=== PATIENT | male | born 1985 | race Caucasian/White ===

== ENCOUNTER 2021-09-27 18:04 | Emergency (ER) | payer SELFPAY ==
[2021-09-27 18:05] VITALS: BP 131/96; PULSE 98; RESP 14; TEMP 37.3; O2SAT 97; BMI 25.8
--- NOTE | 2021-09-27 20:21 | CT_ITS ---
STUDY: CT BRAIN WITHOUT CONTRAST REASON FOR EXAM: Male, 36 years old. Technologist Notes ANXIETY,DECREASED APPETITE, RECENT LOSS OF A FRIEND Change in Mental Status TECHNIQUE: Transaxial CT imaging of the brain was performed without administration of intravenous contrast material. Individualized dose optimization techniques were used for this CT. COMPARISON: None FINDINGS: Normal calvarium. Normal soft tissues. Hyperdensity noted in the 3rd ventricle. 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 Normal size ventricles and extra-axial spaces for the patient''s age. Normal white matter tracts of the cerebral hemispheres. Normal basal ganglia and thalami. Normal brainstem. Normal cerebellum. There is no intracranial hemorrhage. There are no findings of an acute ischemic infarction. Normal visualized paranasal sinuses. ASPECTS 10 CT/Brain/Head without Contrast IMPRESSION: There are no acute intracranial findings. Electronically Signed: Srinivasan Beach MD at 21:36 EDT ,
--- NOTE | 2021-09-27 20:21 | EKG12_ITS ---
Test Reason : DYSRHYTHMIA Blood Pressure : / mmHG Vent. Rate : 075 BPM Atrial Rate : 075 BPM P-R Int : 110 ms QRS Dur : 080 ms QT Int : 388 ms P-R-T Axes : 043 023 022 degrees QTc Int : 433 ms Sinus rhythm with sinus arrhythmia with short MI Otherwise normal ECG Confirmed by ISIS SMITH, JOMAR ([id number]), sports editor VIVIANA FISCHER ([id number]) on 10/01/2021 9:43:42 AM Referred By: MONIQUE Confirmed By:JOMAR MARINELLI MD
[2021-09-27 20:43] LABS: Bacteria 0 SEEN /hpf (None Seen); Mucous, Urine 0 SEEN /hpf (<or=2+); Red Blood Cells-Urine 0 SEEN /hpf (0-5); Squamous Epithelial Cells - UA 0 SEEN /hpf (0-5); White Blood Cells 0 SEEN /hpf (0-5)
[2021-09-27 20:47] LABS: Color, Urine Yellow (Yellow); Glucose, Dipstick Normal (Normal); Leukocyte Esterase-Dipstick 25 /ul (Negative); Nitrite-Dipstick Negative (Negative); Occult Blood-Urine Negative /ul (Negative); Protein-Dipstick 30 mg/dl (Negative); Specific Gravity, Urine 1.025 (1.002-1.030); Urine Bilirubin Dipstick Negative (Negative); Urine Clarity Clear (Clear); Urine Urobilinogen 1 mg/dl (Normal)
[2021-09-27 20:54] LABS: Absolute Lymphocyte Count 2.85 X10^3/uL (0.83-4.51); Absolute Neutrophil Count 8.7 X10^3/uL (2.0-7.7); Basophil# 0.03 X10^3/uL; Basophil% 0.2 % (0-1); Eosinophil# 0.06 X10^3/uL; Eosinophils% 0.5 % (0-5); Hematocrit 44.9 % (40-54); Hemoglobin 15.3 g/dL (13.0-16.5); Lymphocyte # 2.85 X10^3/ul (0.83-4.51); Lymphocyte % 22.5 % (19-41); Mean Corp Hgb Conc 34.1 g/dL (32-36); Mean Corpuscular Hgb 30.6 pg (27.0-32.0); Mean Corpuscular Volume 89.8 fL (80-94); Mean Platelet Vol. 8.7 fl (6.2-12.0); Monocyte% 7.9 % (0-10); NRBC Flagged by Analyzer 0 % (0-5); Neutrophil # 8.69 X10^3/uL (2.7-7.7); Neutrophil % 68.7 % (47-70); Platelet Count 317 K/mm3 (150-450); RBC Distribution Width CV 12.1 % (11.6-14.6); RBC Distribution Width SD 39.8 fl (35.1-43.9); White Blood Count 12.7 K/mm3 (4.4-11.0)
[2021-09-27 20:56] LABS: Ketone-Dipstick 150 mg/dl (Negative)
--- NOTE | 2021-09-27 20:59 | ED.RN ---
PT CONTINUES TO ANSWER QUESTIONS WITH NODDING OR SHAKING HEAD, OCCASIONALLY RESPONDS WITH YES OR NO. ATTEMPTED TO AMBULATE PT TO BATHROOM FOR URINE SAMPLE. PT ALMOST SAT ON FLOOR, THIS NURSE HAD TO PHYSICALLY ASSIST PT BACK TO BED WHILE IN SIGHT OF PARENTS. AFTER PARENTS LEFT ROOM, PT ABLE TO GET OUT OF BED INDEPENDENTLY AND OBTAIN URINE SAMPLE AT BEDSIDE WITHOUT DIFFICULTY.
[2021-09-27 21:05] LABS: Amphetamine Urine VISTA NEGATIVE (<1000 ng/mL); Barbiturate Urine VISTA NEGATIVE (< 200 ng/mL); Benzodiazepine Urine VISTA NEGATIVE (< 200 ng/mL); Cocaine Urine VISTA NEGATIVE (< 300 ng/mL); Ecstacy Urine VISTA NEGATIVE (< 500 ng/mL); Methadone Urine VISTA NEGATIVE (< 300 ng/mL); PCP Urine VISTA NEGATIVE (< 25 ng/mL); THC Urine VISTA POSITIVE (< 50 ng/mL); Vista UDS pH Range 5
--- NOTE | 2021-09-27 21:07 | CM.ED ---
Social Work Note SW received referral for Mental Health. DAMION updated by MD that pt is stating he needs to be committed. Pt will not follow commands and will not talk to physician. RN updated this worker that she tried to get pt to get urine sample and pt was basically collapsing and flopped against the bed rail and hit his head. Once pt's parents left the room, pt was able to stand and use urinal. DAMION placed a call to [facility] and updated staff that pt will need to be assessed. DAMION faxed available clinicals to [facility]. Montserrat Masterson PRINCIPAL DATA ARCHITECT, ARTISTS' BOOKING REPRESENTATIVE
[2021-09-27 21:12] LABS: AST(SGOT) 149 U/L (15-37); Alanine Aminotransfer ALT/SGPT 91 U/L (16-61); Albumin, Serum 4.7 g/dL (3.2-5.0); Alkaline Phosphatase 62 U/L (45-117); Anion Gap 10 (5-15); BUN 12 mg/dL (7-18); BUN/Creat Ratio 11.5 RATIO (10-20); Bilirubin, Direct 0.22 mg/dL (0.00-0.30); Calcium,Total 9.3 mg/dL (8.5-10.1); Chloride 97 mmol/L (98-107); Creatinine, Serum 1.04 mg/dL (0.70-1.30); EST Glomerular Filtration Rate 85 mL/min (>60); Est Glom Filt Rate - Afr Amer 103 mL/min (>60); Estimated Creatinine Clearance 87.76 ml/min; Globulin 3.2 g/dL (2.2-4.2); Glucose 113 mg/dL (74-106); Potassium 4.3 mmol/L (3.5-5.1); Protein, Total 7.9 g/dL (6.4-8.2); Sodium Level 135 mmol/L (136-145)
[2021-09-27 21:35] LABS: Alcohol, Blood (Medical)-Serum < 3.0 mg/dL
[2021-09-27] MEDS: Zolpidem Tartrate 5 MG Tablet PO (23:56)
[2021-09-28 00:06] VITALS: BP 127/69; PULSE 72; RESP 16; O2SAT 98
--- NOTE | 2021-09-28 00:07 | EDS_ITS ---
HPI <Dr. Destin Seaman MD - Last Filed: 09/29/21 15:30> HPI - Psych History of Present Illness Chief Complaint: Anxiety Detail of Chief Complaint: Per HPI narrative Informant: parent and friend Onset/Context/Timing Onset: - (Possibly due to event that occurred 2 weeks ago) Context: Gradual Onset Conflict: - (Feels that everyone dislikes him) Timing: Continuous and Waxes and wanes Current Severity: Unable to determine read HPI narrative Maximum Severity: Unable to determine read HPI narrative Worsened by: Situational factors (Possibly) Relieved by: Nothing Associated Symptoms Associated Symptoms - Psych: Positive for Change in Eating, Change in sleeping and Decreased Interest Specific plan (suicidal thought): Unable to determine Narrative Narrative: 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 He does not drive. [place] and lives near his place of employment. Patient is nonverbal. He will follow simple commands Prior similar symptoms: No Recent Illness/Hospitalization: No PFSH <Dr. Destin Seaman MD - Last Filed: 09/29/21 15:30> PFSH Medical History unable to obtain Allergy/AdvReac Type Severity Reaction Status Date / Time No Known Allergies Allergy Verified 09/28/21 13:54 Family History no significant family his no significant family history Surgical History no surgical history no surgical history Social History household members: none Smoking Status: Never smoker alcohol intake: current substance use type: does not use ROS <Dr. Destin Seaman MD - Last Filed: 09/29/21 15:30> ROS ED Review of Systems ROS Unobtainable: due to mental condition EXAM <Dr. Destin Seaman MD - Last Filed: 09/29/21 15:30> Physical Exam Const Vital Signs: 09/27/21 18:05 09/28/21 00:06 09/28/21 03:00 Temperature 99.1 F Temperature Source Oral Pulse Rate 98 72 Respiratory Rate 14 16 18 Blood Pressure 131/96 H 127/69 H Blood Pressure Mean 107 88 Pulse Ox 97 98 Oxygen Delivery Method Room Air Room Air Room Air 09/28/21 05:00 Temperature Temperature Source Pulse Rate Respiratory Rate 16 Blood Pressure Blood Pressure Mean Pulse Ox Oxygen Delivery Method Room Air Positive well nourished and well developed Constitutional Narrative: Patient is staring ahead. He does have a reflex startle response. He will move his extremity when asked to. He would not smile. He will not talk. General Appearance ED: well developed and NAD; Negative for pallor HEENT Reports TM's clear and moist mucous membranes normocephalic and atraumatic Tympanic Membrane ED: Yes TM's clear Eyes PERRL and EOMs intact bilaterally Eyes Narrative: There is no nystagmus. There is no APD. Cup-to-disc ratio normal. There is no papilledema. General Eye ED: Negative for pale conjunctiva or scleral icterus Neck no lymphadenopathy, supple and no JVD Resp normal respiratory effort and clear to auscultation bilaterally Cardio S1 normal heart sound and S2 normal heart sound Rate: regular rate GI Palpation: soft Back/Spine no CVA tenderness Cervical Spine: Negative for cervical spine tenderness Thoracic Spine / Upper Back: Negative for thoracic spinal tenderness Lumbar Spine / Lower Back: Negative for lumbar spinal tenderness Extremity normal to inspection General Extremety ED: Negative for edema or tenderness General Extremity: Negative for edema Neuro No oriented x3, CN's II-XII intact bilaterally, no sensory deficits noted and deep tendon reflexes 2+ bilaterally Gayatri Coma Scale: document GCS findings Spontaneous Obeys Commands None 11 Motor Exam: muscle tone normal throughout Psych cooperative Appearance: grossly normal and well kempt Attitude: calm and withdrawn Activity / Motor Behavior: psychomotor slowing and avoids eye contact Speech: other Patient would not speak Mood & Affect: depressed Thought Process: other Unable to determine Thought Content: other Unable to determine Attention / Concentration: other Unable to determine Memory / Cognition: other Unable to determine Skin General Skin Exam: Negative for jaundice or pallor Lesions: no lesions Rashes: no rashes <Dr. Faustino Stratton MD - Last Filed: 09/28/21 07:51> Physical Exam Const Vital Signs: 09/27/21 18:05 09/28/21 00:06 09/28/21 03:00 Temperature 99.1 F Temperature Source Oral Pulse Rate 98 72 Respiratory Rate 14 16 18 Blood Pressure 131/96 H 127/69 H Blood Pressure Mean 107 88 Pulse Ox 97 98 Oxygen Delivery Method Room Air Room Air Room Air 09/28/21 05:00 Temperature Temperature Source Pulse Rate Respiratory Rate 16 Blood Pressure Blood Pressure Mean Pulse Ox Oxygen Delivery Method Room Air Neuro Gayatri Coma Scale: document GCS findings 11 MDM <Dr. Destin Seaman MD - Last Filed: 09/29/21 15:30> [facility] Narrative Medical decision making narrative: With patient calling father and states he needs hospitalization for psychiatric reasons and now essentially catatonic Will perform screening work-up for admission psychiatric facility. air export logistics manager was made aware of patient. She contacted the dennyin social media developer from crisis. Crisis did interview him. She feels this is due to insomnia. Plan is Ambien. Allow him to sleep in the emergency department and the lysin social media developer from the crisis and will evaluate in the morning again. Disposition to be determined when patient is reevaluated in the morning. Blood work was obtained to assess for metabolic and infectious causes as well as toxins. His work-up is remarkable for slightly elevated white count, which is nonspecific and not significant. Lab Data Attestation: I reviewed the patient's lab results. Labs: Laboratory Results - last 24 hr 09/27/21 09/27/21 09/27/21 20:35 20:35 20:50 WBC 12.7 H RBC 5.00 Hgb 15.3 Hct 44.9 MCV 89.8 MCH 30.6 MCHC 34.1 RDW Std Deviation 39.8 RDW Coeff of Glynn 12.1 Plt Count 317 MPV 8.7 Immature Gran % (Auto) 0.200 Neut % (Auto) 68.7 Lymph % (Auto) 22.5 [place] % (Auto) 7.9 Eos % (Auto) 0.5 Baso % (Auto) 0.2 Absolute Neuts (auto) 8.7 H Absolute Lymphs (auto) 2.85 Nucleated RBC % 0 Sodium Potassium Chloride Carbon Dioxide Anion Gap BUN Creatinine Estim Creat Clear Calc Est GFR (MDRD) Af Amer Est GFR (MDRD) Non-Af BUN/Creatinine Ratio Glucose Calcium Total Bilirubin Direct Bilirubin AST ALT Alkaline Phosphatase Total Protein Albumin Globulin Urine Color Yellow Urine Clarity Clear Urine pH 6.0 Ur Specific [place] 1.025 Urine Protein 30 H Urine Glucose (UA) Normal Urine Ketones 150 A* Urine Occult Blood Negative Urine Nitrite Negative Urine Bilirubin Negative Urine Urobilinogen 1 H Ur Leukocyte Esterase 25 H Urine RBC 0 SEEN Urine WBC 0 SEEN Ur Squamous Epith Cells 0 SEEN Urine Bacteria 0 SEEN Urine Mucus 0 SEEN Urine Opiates Screen NEGATIVE Urine Methadone Screen NEGATIVE Ur Barbiturates Screen NEGATIVE Ur Phencyclidine Scrn NEGATIVE Ur Amphetamines Screen NEGATIVE MDMA (Ecstasy) Screen NEGATIVE U Benzodiazepines Scrn NEGATIVE Urine Cocaine Screen NEGATIVE U Cannabinoids Screen POSITIVE H Ur Drug Screen Comment Ethyl Alcohol 09/27/21 09/27/21 20:50 20:50 WBC RBC Hgb Hct MCV MCH MCHC RDW Std Deviation RDW Coeff of [place]nn Plt Count MPV Immature Gran % (Auto) Neut % (Auto) Lymph % (Auto) [place] % (Auto) Eos % (Auto) Baso % (Auto) Absolute Neuts (auto) Absolute Lymphs (auto) Nucleated RBC % Sodium 135 L Potassium 4.3 Chloride 97 L Carbon Dioxide 28.0 Anion Gap 10 BUN 12 Creatinine 1.04 Estim Creat Clear Calc 87.76 Est GFR (MDRD) Af Amer 103 Est GFR (MDRD) Non-Af 85 BUN/Creatinine Ratio 11.5 Glucose 113 H Calcium 9.3 Total Bilirubin 1.00 Direct Bilirubin 0.22 AST 149 H ALT 91 H Alkaline Phosphatase 62 Total Protein 7.9 Albumin 4.7 Globulin 3.2 Urine Color Urine Clarity Urine pH Ur Specific [place] Urine Protein Urine Glucose (UA) Urine Ketones Urine Occult Blood Urine Nitrite Urine Bilirubin Urine Urobilinogen Ur Leukocyte Esterase Urine RBC Urine WBC Ur Squamous Epith Cells Urine Bacteria Urine Mucus Urine Opiates Screen Urine Methadone Screen Ur Barbiturates Screen Ur Phencyclidine Scrn Ur Amphetamines Screen MDMA (Ecstasy) Screen U Benzodiazepines Scrn Urine Cocaine Screen U Cannabinoids Screen Ur Drug Screen Comment Ethyl Alcohol < 3.0 Radiography Diagnostic Testing: Clinical Impression(s) from Imaging Studies Brain CT 09/27/21 20:21 IMPRESSION: There are no acute intracranial findings. Electronically Signed: Srinivasan Beach MD at 21:36 EDT Reading Location ID and State: [facility] / [place] , Service support , EKG Initial EKG: Attestation: I personally reviewed and interpreted this EKG as follows: Interpretation: Sinus Rhythm (Ventricular rate is 75. There is a short [place] interval. Parables 110 ms. QS duration 80 ms. QT duration 388 ms. [place] is normal. There is evidence of respiratory variance, sinus arrhythmia.) Treatment and Re-Evaluation Narrative: Patient to be reevaluate in the morning by licensed retail supervisor to determine disposition <Dr. Faustino Stratton MD - Last Filed: 09/28/21 07:51> MDM MDM Narrative Medical decision making narrative: With patient calling father and states he needs hospitalization for psychiatric reasons and now essentially catatonic Will perform screening work-up for admission psychiatric facility. air export logistics manager was made aware of patient. She contacted the dennyin social media developer from crisis. Crisis did interview him. She feels this is due to insomnia. Plan is Ambien. Allow him to sleep in the emergency department and the dennyin social media developer from the crisis and will evaluate in the morning again. Disposition to be determined when patient is reevaluated in the morning. Blood work was obtained to assess for metabolic and infectious causes as well as toxins. His work-up is remarkable for slightly elevated white count, which is nonspecific and not significant. [place]: Patient has been resting throughout the night up to this point. I have not heard of any issues. He has been quiet. We will have crisis repeat eval in the morning. Lab Data Labs: Laboratory Results - last 24 hr 09/27/21 09/27/21 09/27/21 20:35 20:35 20:50 WBC 12.7 H RBC 5.00 Hgb 15.3 Hct 44.9 MCV 89.8 MCH 30.6 MCHC 34.1 RDW Std Deviation 39.8 RDW Coeff of [place]nn 12.1 Plt Count 317 MPV 8.7 Immature Gran % (Auto) 0.200 Neut % (Auto) 68.7 Lymph % (Auto) 22.5 [place] % (Auto) 7.9 Eos % (Auto) 0.5 Baso % (Auto) 0.2 Absolute Neuts (auto) 8.7 H Absolute Lymphs (auto) 2.85 Nucleated RBC % 0 Sodium Potassium Chloride Carbon Dioxide Anion Gap BUN Creatinine Estim Creat Clear Calc Est GFR (MDRD) Af Amer Est GFR (MDRD) Non-Af BUN/Creatinine Ratio Glucose Calcium Total Bilirubin Direct Bilirubin AST ALT Alkaline Phosphatase Total Protein Albumin Globulin Urine Color Yellow Urine Clarity Clear Urine pH 6.0 Ur Specific [place] 1.025 Urine Protein 30 H Urine Glucose (UA) Normal Urine Ketones 150 A* Urine Occult Blood Negative Urine Nitrite Negative Urine Bilirubin Negative Urine Urobilinogen 1 H Ur Leukocyte Esterase 25 H Urine RBC 0 SEEN Urine WBC 0 SEEN Ur Squamous Epith Cells 0 SEEN Urine Bacteria 0 SEEN Urine Mucus 0 SEEN Urine Opiates Screen NEGATIVE Urine Methadone Screen NEGATIVE Ur Barbiturates Screen NEGATIVE Ur Phencyclidine Scrn NEGATIVE Ur Amphetamines Screen NEGATIVE MDMA (Ecstasy) Screen NEGATIVE U Benzodiazepines Scrn NEGATIVE Urine Cocaine Screen NEGATIVE U Cannabinoids Screen POSITIVE H Ur Drug Screen Comment Ethyl Alcohol 09/27/21 09/27/21 20:50 20:50 WBC RBC Hgb Hct MCV MCH MCHC RDW Std Deviation RDW Coeff of [place]nn Plt Count MPV Immature Gran % (Auto) Neut % (Auto) Lymph % (Auto) [place] % (Auto) Eos % (Auto) Baso % (Auto) Absolute Neuts (auto) Absolute Lymphs (auto) Nucleated RBC % Sodium 135 L Potassium 4.3 Chloride 97 L Carbon Dioxide 28.0 Anion Gap 10 BUN 12 Creatinine 1.04 Estim Creat Clear Calc 87.76 Est GFR (MDRD) Af Amer 103 Est GFR (MDRD) Non-Af 85 BUN/Creatinine Ratio 11.5 Glucose 113 H Calcium 9.3 Total Bilirubin 1.00 Direct Bilirubin 0.22 AST 149 H ALT 91 H Alkaline Phosphatase 62 Total Protein 7.9 Albumin 4.7 Globulin 3.2 Urine Color Urine Clarity Urine pH Ur Specific [place] Urine Protein Urine Glucose (UA) Urine Ketones Urine Occult Blood Urine Nitrite Urine Bilirubin Urine Urobilinogen Ur Leukocyte Esterase Urine RBC Urine WBC Ur Squamous Epith Cells Urine Bacteria Urine Mucus Urine Opiates Screen Urine Methadone Screen Ur Barbiturates Screen Ur Phencyclidine Scrn Ur Amphetamines Screen MDMA (Ecstasy) Screen U Benzodiazepines Scrn Urine Cocaine Screen U Cannabinoids Screen Ur Drug Screen Comment Ethyl Alcohol < 3.0 Radiography Diagnostic Testing: Clinical Impression(s) from Imaging Studies Brain CT 09/27/21 20:21 IMPRESSION: There are no acute intracranial findings. Electronically Signed: Srinivasan Beach MD at 21:36 EDT , Discharge Plan Triage Chief Complaint: Anxiety ED Provider: Destin Seaman Dx/Rx/DC Orders Primary Care Provider: Care Physician,No Primary Referrals: Care Physician,No Primary [Primary Care Provider] - Disposition Disposition: Elopement Discharge Date/Time: 09/28/21 07:59
--- NOTE | 2021-09-28 00:30 | ED.RN ---
PT NOW SPEAKING CLEARLY AND APPROPRIATELY, MAKES EYE CONTACT. MEAL GIVEN, DENIES FURTHER NEEDS.
[2021-09-28 03:00] VITALS: RESP 18
[2021-09-28 05:00] VITALS: RESP 16
--- NOTE | 2021-09-28 07:57 | ED.RN ---
THIS RN WENT BACK TO GIVE PT HIS BREAKFAST TRY. PT WAS NO LONGER IN THE ROOM AND HIS BELONGINGS WERE GONE. NOTIFIED OF HIS ELOPEMENT. PT WAS NOT PINK SLIPPED.
== END 2021-09-28 07:59 | disposition left against medical advice (07) ==
PROVIDERS: Emergency Provider Emergency Medicine; Visit Provider Emergency Medicine
DX: F41.9 Anxiety disorder, unspecified (principal)
CPT/HCPCS: 70450; 80048; 80076; 80307; 81001; 82077; 85025; 87811; 93005; 99281; 99282; 99283; 99285

== ENCOUNTER 2021-09-28 10:53 | Emergency (ER) | payer SELFPAY ==
[2021-09-28 10:54] VITALS: BP 150/102; PULSE 125; RESP 16; TEMP 36.4; O2SAT 97; BMI 25.8
--- NOTE | 2021-09-28 11:11 | EX.ED.DYSGE1 ---
HPI History of Present Illness Chief Complaint: Anxiety Narrative Narrative: 36-year-old male presenting with anxiety. He states he would like to be examined to see if he has bipolar disorder. He was seen in the Emergency Department yesterday. He reportedly had not been sleeping for approximately 5 days. He slept in the ED last night and woke up this morning and eloped. He denies suicidal or homicidal ideation. Denies history of psychiatric disorder. He states he has been feeling anxious. He admits to marijuana use, denies other drug use. Denies visual or auditory hallucinations. Denies paranoia. Recent Illness/Hospitalization: No PFSH PFSH Allergy/AdvReac Type Severity Reaction Status Date / Time No Known Allergies Allergy Verified 09/28/21 13:54 Social History household members: none Smoking Status: Never smoker alcohol intake: current substance use type: does not use ROS ROS ED Constitutional Constitutional ED: Denies fever(s) Eyes Eyes: Denies change in vision ENT ENT ED: Denies rhinorrhea Cardiovascular Cardiovascular: Denies chest pain or palpitations Respiratory/Chest Respiratory/Chest: Denies cough or dyspnea on exertion Gastrointestinal Gastrointestinal: Denies abdominal pain Musculoskeletal Musculoskeletal: Denies myalgias Integumentary Denies rash Neurologic Neurologic: Denies headache(s), paresthesias or weakness Psychiatric Psychiatric: Reports anxiety; Denies suicidal ideation or suicidal thoughts EXAM Physical Exam Const Vital Signs: 09/28/21 10:54 09/28/21 12:59 Temperature 97.5 F L Temperature Source Temporal Pulse Rate 125 H 78 Respiratory Rate 16 14 Blood Pressure 150/102 H Blood Pressure Mean 118 Pulse Ox 97 98 Oxygen Delivery Method Room Air Room Air Positive well nourished and well developed General Appearance ED: well developed HEENT Reports moist mucous membranes Eyes PERRL and EOMs intact bilaterally Neck supple Chest Wall inspection of chest normal Resp normal respiratory effort and clear to auscultation bilaterally Cardio regular rate and regular rhythm GI normal to inspection, nondistended, normoactive bowel sounds Back/Spine no CVA tenderness Extremity normal to inspection Neuro oriented x3, CN's II-XII intact bilaterally and no sensory deficits noted Psych Mood & Affect: anxious Skin no rashes or lesions noted MDM MDM MDM Narrative Medical decision making narrative: Patient is cooperative in the Emergency Department. He denies suicidal or homicidal ideation. He is requesting to speak with the counselor on-call. Discussed with counseling center and they will talk to him on the phone. Patient eloped from the ED prior to speaking with the counseling center. Discharge Plan Triage Chief Complaint: Anxiety ED Provider: Jada Sweeney Dx/Rx/DC Orders Clinical Impression: Anxiety Primary Care Provider: Care Physician,No Primary Referrals: Care Physician,No Primary [Primary Care Provider] - Disposition Disposition: Elopement Discharge Date/Time: 09/28/21 13:10
--- NOTE | 2021-09-28 11:37 | NURSING ---
CALL [facility]
[2021-09-28 12:59] VITALS: PULSE 78; RESP 14; O2SAT 98
--- NOTE | 2021-09-28 13:09 | ED.RN ---
pt walks out, tells triage i dont think i need to be here anymore, ill come back if i need to. aware
== END 2021-09-28 13:10 | disposition left against medical advice (07) ==
LOC: ED 11:42
PROVIDERS: Emergency Provider Emergency Medicine; Visit Provider Emergency Medicine
DX: F41.9 Anxiety disorder, unspecified (principal); F12.90 Cannabis use, unspecified, uncomplicated; Z53.29 Procedure and treatment not carried out because of patient's decision for other reasons
CPT/HCPCS: 99281

== ENCOUNTER 2021-09-28 13:52 | Emergency (ER) | payer SELFPAY ==
[2021-09-28 13:52] VITALS: BP 123/100; PULSE 124; RESP 18; TEMP 36.2; O2SAT 96; BMI 25.8
--- NOTE | 2021-09-28 14:02 | NURSING ---
[facility]ED [facility], TALKED TO ADONAY
--- NOTE | 2021-09-28 14:35 | EX.ED.DYSGE1 ---
HPI History of Present Illness Chief Complaint: Anxiety Narrative Narrative: Patient presents with anxiety, paranoia's and delusions for the past few days, they have been worse recently. Per the patient's sister he has even had 1 episode where he said he wishes everyone would kill him he admits to that. PFSH PFSH Allergy/AdvReac Type Severity Reaction Status Date / Time No Known Allergies Allergy Verified 09/28/21 13:54 Social History household members: none Smoking Status: Never smoker alcohol intake: current substance use type: does not use EXAM Physical Exam Const Vital Signs: 09/28/21 13:52 Temperature 97.1 F L Temperature Source Temporal Pulse Rate 124 H Respiratory Rate 18 Blood Pressure 123/100 H Blood Pressure Mean 107 Pulse Ox 96 Oxygen Delivery Method Room Air MDM MDM MDM Narrative Medical decision making narrative: Because of the patient's paranoia's delusions I pink slipped him. He will be evaluated by crisis. Discharge Plan Triage Chief Complaint: Anxiety ED Provider: Surinder Peña Dx/Rx/DC Orders Clinical Impression: Psychosis, Anxiety Primary Care Provider: Care Physician,No Primary Referrals: Care Physician,No Primary [Primary Care Provider] -
--- NOTE | 2021-09-28 15:34 | ED.RN ---
CRISIS CALLED REGARDING PT AND PTS FAMILY HISTORY OF MENTAL HEALTH DISORDERS. CRISIS TO TYPE REPORT AND SEND IT OVER. CRISIS ALSO STATES THAT PT DOES NOT HAVE INSURANCE BUT THEY HAVE FUNDS FOR HIM TO USE.
[2021-09-28 17:35] VITALS: BP 134/68; PULSE 96; RESP 16; O2SAT 98
[2021-09-28 22:00] VITALS: BP 134/86; PULSE 66; RESP 14; O2SAT 98
[2021-09-28 22:23] VITALS: BP 138/86; PULSE 78; RESP 14; TEMP 37.2; O2SAT 100
== END 2021-09-28 23:42 ==
PROVIDERS: Emergency Provider Emergency Medicine; Visit Provider Emergency Medicine
DX: F22 Delusional disorders (principal); F41.9 Anxiety disorder, unspecified
CPT/HCPCS: 99285; 87811